=== PATIENT | female | born 1930 | race Caucasian/White ===

== ENCOUNTER 2017-01-11 20:25 | Emergency (ER) | payer MEDICARE ==
[2017-01-11 20:39] VITALS: BP 169/86
--- NOTE | 2017-01-11 21:08 | UC ---
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---all happenen in past 2 days Bite on left arm is red warm and swollen - History of Current Complaint Chief Complaint: UCBiteInjury Time Seen by Provider: 01/11/17 20:55 Stated Complaint: TICK BITES Hx Obtained From: Patient ?: No Onset/Duration: Sudden Onset, Lasting Days - 2, Worse Since - left arm today Skin Exposure Onset/Duration: Days Ago - 2 Timing: Constant Onset Severity: Mild Current Severity: Moderate Pain Intensity: 2 - left elbow at tick site Location: Discrete Character: Redness Aggravating: Nothing Alleviating: Nothing Associated Signs & Symptoms: Positive: Bruising - arond 4 of the site, Tenderness - around site on left arm Related History: Possible Reaction to: Insect Similar Episode/Dx as: Lyme times 2 in the past - Allergy/Home Medications Allergies/Adverse Reactions: Allergies Allergy/AdvReac Type Severity Reaction Status Date / Time Amlodipine Allergy Unknown Verified 01/11/17 20:39 Reaction Details Amoxicillin Allergy Unknown Verified 01/11/17 20:39 Reaction Details Ciprofloxacin Allergy Rash Verified 01/11/17 20:39 Hydrochlorothiazide Allergy Shakes Verified 01/11/17 20:39 Levofloxacin [From Levaquin] Allergy Muscle Ache Verified 01/11/17 20:39 Levothyroxine Allergy Diarrhea Verified 01/11/17 20:39 Omeprazole Allergy Abdominal Verified 01/11/17 20:39 Pain Review of Systems Constitutional: Negative Skin: Bruising - around 4 tick bite, Other - erythema around bite on left arm Eyes: Negative ENT: Negative Respiratory: Negative Cardiovascular: Negative Gastrointestinal: Negative Genitourinary: Negative Motor: Negative Neurovascular: Negative Musculoskeletal: Negative Neurological: Negative Psychological: Negative All Other Systems Reviewed And Are Negative: Yes PMH/Surg Hx/FS Hx/Imm Hx Previously Healthy: No - Lyme x2 Cardiovascular History Of: Reports: Hypertension GI/ History Of: Denies: Gall Bladder Disease - Surgical History Surgical History: Yes Surgery Procedure, Year, and Place: appendectomy as a teenager. Cataract surgery. - Family History Known Family History: Positive: None Family History: No cardio vascular issues reported in family lineage - Social History Occupation: Retired Lives: With Family Alcohol Use: None Substance Use Type: None Smoking Status (MU): Never Smoked Tobacco - Immunization History Most Recent Influenza Vaccination: never Most Recent Tetanus Shot: up to date Most Recent Pneumonia Vaccination: years ago Physical Exam Triage Information Reviewed: Yes Appearance: Well-Appearing, No Pain Distress, Well-Nourished Vital Signs: Initial Vital Signs Temp 96.7 F 01/11/17 20:35 Pulse 79 01/11/17 20:35 Resp 16 01/11/17 20:35 BP 169/86 01/11/17 20:35 Pulse Ox 100 01/11/17 20:35 Vital Signs Reviewed: Yes Eye Exam: Normal Eyes: Positive: Conjunctiva Clear ENT Exam: Normal ENT: Positive: Normal ENT inspection, Hearing grossly normal. Negative: Nasal congestion, Nasal drainage, Trismus, Muffled/hoarse voice Dental Exam: Normal Neck exam: Normal Neck: Positive: Supple, Nontender, No Lymphadenopathy Respiratory Exam: Normal Respiratory: Positive: Chest non-tender, Lungs clear, Normal breath sounds, No respiratory distress, No accessory muscle use Cardiovascular Exam: Normal Cardiovascular: Positive: RRR, No Murmur, Pulses Normal, Brisk Capillary Refill Musculoskeletal Exam: Normal Musculoskeletal: Positive: Strength Intact, ROM Intact, No Edema Neurological Exam: Normal Neurological: Positive: Alert, Muscle Tone Normal Psychological Exam: Normal Psychological: Positive: Normal Response To Family Skin: Positive: rashes - bruising around 4 tick sites, Other - erythema 2 inch diameter and tender around site Left forearm Course/Dx - Course Course Of Treatment: PEP for Lyme and treat cellulitis, follow BP, cellulities and s/s of Lyme with pcp---warm compress to left fore arm - Differential Diagnoses - Skin Complaint Differential Diagnoses: Cellulitis, Impetigo, Tick Born Illness - Diagnoses Provider Diagnoses: Lyme PEP, cellulitis left for arm, hypertension poor control Discharge - Discharge Plan Condition: Stable Disposition: HOME Prescriptions: DOXYcycline CAP(*) [DOXYcycline 100MG CAP(*)] 100 mg PO BID #20 cap Patient Education Materials: Cellulitis (ED), Tick Bite (ED), DASH Eating Plan (ED), Hypertension (ED) Referrals: Russell Gu MD [Primary Care Provider] - 2 Weeks
[2017-01-11] MEDS ORDERED: DOXYcycline CAP(*) 100 MG PO ONE (21:13)
== END 2017-01-11 21:29 | disposition home or self-care (01) ==
LOC: UCEAST 20:25
DX: S50.862A Insect bite (nonvenomous) of left forearm, initial encounter (principal); L03.114 Cellulitis of left upper limb; W57.XXXA Bitten or stung by nonvenomous insect and other nonvenomous arthropods, initial encounter; Y93.9 Activity, unspecified; Y92.9 Unspecified place or not applicable; I10 Essential (primary) hypertension; Z98.49 Cataract extraction status, unspecified eye; Z88.1 Allergy status to other antibiotic agents; Z88.8 Allergy status to other drugs, medicaments and biological substances
CPT/HCPCS: 99212; A9270-GY; G0463

== ENCOUNTER 2017-06-13 11:54 | Emergency (ER) | payer MEDICARE ==
[2017-06-13 12:12] VITALS: BP 181/72
[2017-06-13] MEDS ORDERED: DOXYcycline CAP(*) 100 MG PO ONE (12:44)
--- NOTE | 2017-06-13 12:49 | UC ---
Skin Complaint HPI - HPI Summary HPI Summary: Noticed tick in R upper arm this morning, it looked "very big." Was outside 2-3 days ago; dtr tried to help remove it, but tick twisters don't work due to pt's elastic skin. Would like the rest of the tick removed, prophylactic therapy. - History of Current Complaint Chief Complaint: UCSkin Time Seen by Provider: 06/13/17 12:27 Stated Complaint: TICK Hx Obtained From: Patient, Family/Beader Tender ?: No Onset/Duration: Lasting Days Timing: Constant Location: Discrete Character: Redness Aggravating Factor(s): Nothing Alleviating Factor(s): Nothing Associated Signs & Symptoms: Positive: Negative Related History: Insect Bite/Sting - Allergy/Home Medications Allergies/Adverse Reactions: Allergies Allergy/AdvReac Type Severity Reaction Status Date / Time Amlodipine Allergy Unknown Verified 06/13/17 12:14 Reaction Details Ciprofloxacin [From Cipro] Allergy Rash Verified 06/13/17 12:14 Hydrochlorothiazide Allergy Shakes Verified 06/13/17 12:14 Levofloxacin [From Levaquin] Allergy Muscle Ache Verified 06/13/17 12:14 Levothyroxine Allergy Diarrhea Verified 06/13/17 12:14 Omeprazole Allergy GI Upset Verified 06/13/17 12:14 Home Medications: Home Medications Losartan TAB* [Cozaar TAB*] 100 mg PO DAILY 06/13/17 [History Confirmed 06/13/17 ] Tetrahydrozoline HCl (Ophth) [Eye Drops] 06/13/17 [History] Review of Systems Constitutional: Negative Skin: Other - tick Eyes: Negative ENT: Negative Respiratory: Negative Cardiovascular: Negative Gastrointestinal: Negative Genitourinary: Negative Motor: Negative Neurovascular: Negative Musculoskeletal: Negative Neurological: Negative Psychological: Negative Is Patient Immunocompromised?: No All Other Systems Reviewed And Are Negative: Yes PMH/Surg Hx/FS Hx/Imm Hx Cardiovascular History: Hypertension - Surgical History Surgical History: Yes Surgery Procedure, Year, and Place: appy - Social History Alcohol Use: None Substance Use Type: None Smoking Status (MU): Never Smoked Tobacco Physical Exam Triage Information Reviewed: Yes Appearance: Well-Appearing, No Pain Distress, Well-Nourished Vital Signs: Initial Vital Signs Temp 98.1 F 06/13/17 12:08 Pulse 72 06/13/17 12:08 Resp 18 06/13/17 12:08 BP 181/72 06/13/17 12:08 Pulse Ox 98 06/13/17 12:08 Vital Signs Reviewed: Yes Eyes: Positive: Conjunctiva Clear ENT: Positive: Pharynx normal. Negative: Hearing grossly normal - [place], reads lips Dental Exam: Other - dentures Neck exam: Normal Respiratory Exam: Normal Respiratory: Positive: Chest non-tender, Lungs clear, Normal breath sounds, No respiratory distress, No accessory muscle use Cardiovascular Exam: Normal Cardiovascular: Positive: RRR, No Murmur Musculoskeletal Exam: Normal Neurological Exam: Normal Neurological: Positive: Alert Psychological Exam: Normal Skin Exam: Other - tick bite site benign with 1.5cm reactive erythematous round area, mouth parts noted in the center, removed with splinter forceps. Course/Dx - Diagnoses Provider Diagnoses: R arm tick bite. soft tissue FB removal Discharge - Discharge Plan Condition: Stable Disposition: HOME Patient Education Materials: Tick Bite (ED) Additional Instructions: TICK BITE: You have been bitten by a tick. Once the tick is removed, these "bites" usually cause no problems. Tick fever, tick paralysis, [place] Spotted fever, and Lyme disease are uncommon -- but you should mention this tick bite to your doctor if you develop unusual symptoms in the next several weeks. If you develop any of the following, please see your physician promptly: (1) Fever, chills, or generalized malaise associated with a headache. (2) A red round area at the site of the bite (or elsewhere) (3) Joint pain, joint swelling or generalized weakness. (4) Redness, swelling, or drainage at the site of the bite. Check yourself, your children and your pets for ticks whenever you've been in an area where ticks live. To remove a tick, grasp it firmly with some tweezers or a string in a slipknot as close to its head as possible and pull it steadily. Ticks do not have a typical "head" attached to their body. There are mouth parts sticking out which they use to feed. If there are mouth parts left behind in the wound there is NO increased risk of Lyme infection; however, the chances of a bacterial skin infection (cellulitis) are higher. If mouth parts remain after tick removal, the best thing to do is apply warm soaks to the area 3-4 times per day to encourage the skin to expel the foreign material. DOXYCYCLINE: Doxycycline (Vibramycin, Doryx) is an antibiotic of the tetracycline family. This type of drug is useful for infections of the respiratory tract and genital tract, and is sometimes used for intestinal infections. Unlike most tetracyclines, doxycycline can be taken with food. It is longer acting, and (usually) less prone to side effects than regular tetracycline. Tetracycline antibiotics can stain immature teeth and SHOULD NOT BE TAKEN BY CHILDREN, NURSING MOTHERS, OR WOMEN. Tetracyclines can make you more prone to sunburn. Abdominal cramping, nausea, and diarrhea are occasional side effects. Women may experience vaginal yeast infections. Call the doctor at once if you develop hives, itching, shortness of breath , or lightheadedness. WHEN A TICK IS NOT ENGORGED AND HAS BEEN ON LESS THAN 24 HOURS - THE RISK FOR LYME IS NEGLIGIBLE. YOU CAN REMOVE THE TICK AND OBSERVE THE AREA ON YOUR OWN. FOLLOW-UP CARE: You should contact your private physician for follow-up care if you develop spreading redness near the site of the bite or on any other areas of the body. If you are unable to get a timely appointment, or if you are worsening, call us or return for re-evaluation.
== END 2017-06-13 13:00 | disposition home or self-care (01) ==
LOC: EDUNIT# → UCEAST 11:54
DX: S40.861A Insect bite (nonvenomous) of right upper arm, initial encounter (principal); I10 Essential (primary) hypertension; W57.XXXA Bitten or stung by nonvenomous insect and other nonvenomous arthropods, initial encounter; Y92.9 Unspecified place or not applicable
CPT/HCPCS: 99202; A9270-GY; G0463

== ENCOUNTER 2017-07-29 10:42 | Emergency (ER) | payer MEDICARE ==
[2017-07-29 11:05] VITALS: BP 154/50
--- NOTE | 2017-07-29 12:28 | UC ---
Ear Complaint HPI - HPI Summary HPI Summary: 86 year old female here for hearing loss. As per daughter, patient is on treatment of bilateral otitis media and sinusitis. She had history of decreased hearing but in the past few days, complete hearing loss. Her daughter couldnt get an appointment with ENT for another 3-4 months, so she brought here for evaluation. - History of Current Complaint Chief Complaint: UCGeneralIllness Stated Complaint: SINUS ISSUE EAR PAIN Time Seen by Provider: 07/29/17 11:33 Onset/Duration: Gradual Onset Severity Initially: Mild Associated Signs/Symptoms: Positive: Hearing Loss - Allergies/Home Medications Allergies/Adverse Reactions: Allergies Allergy/AdvReac Type Severity Reaction Status Date / Time Amlodipine Allergy Unknown Verified 07/29/17 11:06 Reaction Details Amoxicillin Allergy Unknown Verified 07/29/17 11:06 Reaction Details Ciprofloxacin Allergy Rash Verified 07/29/17 11:06 Hydrochlorothiazide Allergy Shakes Verified 07/29/17 11:06 Levofloxacin [From Levaquin] Allergy Muscle Ache Verified 07/29/17 11:06 Levothyroxine Allergy Diarrhea Verified 07/29/17 11:06 Omeprazole Allergy Abdominal Verified 07/29/17 11:06 Pain Penicillins Allergy Unknown Verified 07/29/17 11:06 Reaction Details Home Medications: Home Medications Carboxymethylcellulose-Hyprome [Genteal 0.25-0.3 %] 1 applic OPHTHALMIC QID 09/14 [History Confirmed 07/29/17] Cefdinir [Cefdinir 300 MG CAP] 300 mg PO BID 07/29/17 [History Confirmed ] Ketorolac 0.5% OPHTH (NF) 1 drop OPHTHALMIC TID 07/29/17 [History Confirmed 09/14] Prednisolone Acetate (Ophth) [Pred Forte] 1 drop OPHTHALMIC QID 07/29/17 [ History Confirmed 07/29/17] Sodium Chloride 5% OPTH OINT* [[place] 128- 5% Opth Oint*] 1 applic OPHTHALMIC BEDTIME 07/29/17 [History Confirmed 07/29/17] PMH/Surg Hx/FS Hx/Imm Hx - Surgical History Surgical History: Yes Surgery Procedure, Year, and Place: appy; Cataracts and Glaucoma; Hiatal Hernia Repair - Family History Known Family History: Positive: None Family History: No cardio vascular issues reported in family lineage - Social History Alcohol Use: None Substance Use Type: None Smoking Status (MU): Never Smoked Tobacco - Immunization History Most Recent Influenza Vaccination: Not Utd Most Recent Tetanus Shot: up to date Most Recent Pneumonia Vaccination: years ago Review of Systems Constitutional: Negative Skin: Negative Eyes: Negative ENT: Sinus Congestion, Sinus Pain/Tenderness, Other Respiratory: Negative Cardiovascular: Negative Gastrointestinal: Negative Genitourinary: Negative Motor: Negative Neurovascular: Negative Musculoskeletal: Negative Neurological: Negative Psychological: Negative All Other Systems Reviewed And Are Negative: Yes Physical Exam Triage Information Reviewed: Yes Appearance: Well-Appearing, No Pain Distress, Well-Nourished Vital Signs: Initial Vital Signs Temp 36.6 C 07/29/17 10:56 Pulse 68 07/29/17 10:56 Resp 16 07/29/17 10:56 BP 154/50 07/29/17 10:56 Pulse Ox 100 07/29/17 10:56 ENT: Positive: Other - Right TM wnl Left TM with slight effusion Complete loss of hearing, Respiratory: Positive: Chest non-tender, Lungs clear, Normal breath sounds, No respiratory distress, No accessory muscle use Cardiovascular: Positive: RRR, No Murmur, Pulses Normal Skin Exam: Normal Ear Complaint Course/Dx - Course Course Of Treatment: Hearing loss - Differential Dx/Diagnosis Differential Diagnosis/HQI/PQRI: Otitis Externa, Otitis Media Provider Diagnoses: Hearing loss Discharge - Discharge Plan Condition: Good Disposition: HOME Patient Education Materials: Hearing Loss (ED) Referrals: Russell Gu MD [Primary Care Provider] - Devon Page MD [Medical Doctor] - Additional Instructions: Follow up with Dr. Page .
--- NOTE | 2017-07-29 12:35 | UC ---
Progress - Progress Note Progress Note: I called Dr. Page's office but it was closed for lunch. I explained to the daughter that since the otitis media is resolving, no new medication is needed. However the daughter was visibly upset, yelling at me and RN. "I cant get ENT appointment, and what makes you think you can get an ENT appt." I have explained that no emergent procedure is needed here and no new antibiotics is needed.
== END 2017-07-29 12:35 | disposition home or self-care (01) ==
LOC: UCEAST 10:42
DX: H91.90 Unspecified hearing loss, unspecified ear (principal); H66.93 Otitis media, unspecified, bilateral
CPT/HCPCS: 99211; 99212; G0463

== ENCOUNTER 2017-10-23 09:29 | Emergency (ER) | payer MEDICARE ==
[2017-10-23 11:37] VITALS: BP 154/90
--- NOTE | 2017-10-23 13:22 | UC ---
Carlos Lynch Jason, scribed for Fabiano Monahan MD on 10/23/17 at 1134 . Respiratory Complaint HPI - HPI Summary HPI Summary: This patient is a 86 year old F presenting to [facility] with a chief complaint of respiratory infection since 4 days ago. The patient states that she has been coughing up diehl mucous, experienced a mild fever for one day, and began feeling so tired I could sleep all day. The patient rates the pain 0/10 in severity. Symptoms aggravated by nothing. Symptoms alleviated by nothing. Patient reports mild fever, productive cough, chills, diehl mucous. Patient denies hx of CHF, body aches. - History of Current Complaint Chief Complaint: UCRespiratory Stated Complaint: URI Time Seen by Provider: 10/23/17 11:23 Hx Obtained From: Patient Onset/Duration: Gradual Onset, Lasting Days - 4 days Pain Intensity: 0 Pain Scale Used: 0-10 Numeric Character: Cough: Productive Alleviating Factors: Nothing Associated Signs And Symptoms: Positive: Fever, Chills - Allergies/Home Medications Allergies/Adverse Reactions: Allergies Allergy/AdvReac Type Severity Reaction Status Date / Time amlodipine Allergy Unknown Verified 10/23/17 09:51 Reaction Details ciprofloxacin [From Cipro] Allergy Rash Verified 10/23/17 09:51 hydrochlorothiazide Allergy Shakes Verified 10/23/17 09:51 levofloxacin [From Levaquin] Allergy Muscle Ache Verified 10/23/17 09:51 levothyroxine Allergy Diarrhea Verified 10/23/17 09:51 MS Levothyroxine Allergy Diarrhea Verified 07/29/17 11:06 [Levothyroxine] MS Omeprazole [Omeprazole] Allergy Abdominal Verified 07/29/17 11:06 Pain MS Penicillins [Penicillins] Allergy Unknown Verified 07/29/17 11:06 Reaction Details omeprazole Allergy Unknown Verified 10/23/17 09:51 Reaction Details PMH/Surg Hx/FS Hx/Imm Hx Cardiovascular History: Other Other Cardiovascular History: negative CHF - Surgical History Surgical History: Yes Surgery Procedure, Year, and Place: appy; Cataracts and Glaucoma; Hiatal Hernia Repair - Family History Known Family History: Positive: None Family History: No cardio vascular issues reported in family lineage - Social History Alcohol Use: None Substance Use Type: None Smoking Status (MU): Never Smoked Tobacco - Immunization History Most Recent Influenza Vaccination: Not Utd Most Recent Tetanus Shot: up to date Most Recent Pneumonia Vaccination: years ago Review of Systems Constitutional: Fever - mild fever for one day, Chills Respiratory: Cough - productive with diehl mucous Musculoskeletal: Negative - myalgia All Other Systems Reviewed And Are Negative: Yes Physical Exam - Summary Physical Exam Summary: General: well-appearing, no pain distress Skin: warm, color reflects adequate perfusion, dry Head: normal Eyes: EOMI, LIZZY ENT: Positive Rhinorrhea, eardrums okay, Posterior pharynx with mild erythema Neck: supple, nontender, Positive anterior cervical lymphadenopathy. Respiratory: CTA, breath sounds present Cardiovascular: RRR Abdomen: soft, nontender Bowel: present Musculoskeletal: normal, strength/ROM intact Neurological: normal, sensory/motor intact, A&O x3 Psychological: affect/mood appropriate Triage Information Reviewed: Yes Vital Signs: Initial Vital Signs Temp 98.9 F 10/23/17 09:44 Pulse 82 10/23/17 09:44 Resp 18 10/23/17 09:44 BP 127/102 10/23/17 09:44 Pulse Ox 99 10/23/17 09:44 Diagnostic Evaluation - Laboratory O2 Sat by Pulse Oximetry: 99 Respiratory Course/Dx - Course Course Of Treatment: Medications reviewed. Allergies noted. BP noted and advised to follow up with PCP. DISCUSSED VIRAL VERSES BACTERILA INFECTIONS AND THE USE OF ANTIBIOTICS. THE PATIENT WISHES TO START AND ANTIBIOTIC AT THIS TIME. - Differential Dx/Diagnosis Provider Diagnoses: BRONCHITIS. elevated BP without dx of HTN Discharge - Discharge Plan Condition: Stable Disposition: HOME Prescriptions: Azithromyxin PATRICK (NF) [Z-Patrick (Zithromax) 250 mg tabs #6] 2 tab PO .TODAY, THEN 1 DAILY #6 tab Patient Education Materials: Acute Bronchitis (ED) Referrals: Russell Gu MD [Primary Care Provider] - Additional Instructions: Your blood pressure was elevated during todays visit; please follow up with your primary care provider within a week for further evaluation The documentation as recorded by the Carlos huang Jason accurately reflects the service I personally performed and the decisions made by me, Fabiano Monahan MD.
== END 2017-10-23 11:47 | disposition home or self-care (01) ==
LOC: UCEAST 09:29
DX: J40 Bronchitis, not specified as acute or chronic (principal); R03.0 Elevated blood-pressure reading, without diagnosis of hypertension; Z88.1 Allergy status to other antibiotic agents; Z88.0 Allergy status to penicillin; Z88.8 Allergy status to other drugs, medicaments and biological substances
CPT/HCPCS: 99212; G0463

== ENCOUNTER 2019-08-24 18:17 | Emergency (ER) | payer MEDICARE ==
--- NOTE | 2019-08-24 18:35 | ED ---
Lower Extremity - HPI Summary HPI Summary: The patient is an 88 y/o F presenting [place] [facility] accompanied by daughter with a chief complaint of swelling and pain in the right calf onset four days ago. She reports that she had slipped on ice and caught herself on her right calf. She denies feeling a popping sensation in the leg. Since then, the pain has been increasing. She went to her chiropractor today who noticed that there was a lot of sensitivity in the calf as well as swelling. Her PCP recommended she come here to rule out DVT. She denies any CP, SOB, cough, abdominal pain, or nausea. There is no pain in the anterior lower leg. Symptoms currently rated 6/10 in severity. Pain is aggravated by touch. PMHx: HTN, glaucoma. Nonsmoker, no EtOH, no substance use. Medications reviewed. Allergies noted. - History of Current Complaint Chief Complaint: EDExtremityLower Stated Complaint: RT CALF PAIN PER PT Time Seen by Provider: 08/24/19 18:25 Hx Obtained From: Patient Mechanism Of Injury: Other - hit calf a few days ago while catching self from falling Onset of Pain: Post Accident Onset/Duration: Still Present Severity Initially: Mild Severity Currently: Moderate Pain Intensity: 6 Pain Scale Used: 0-10 Numeric Timing: Constant Location: Is Discrete @ - right calf Associated Signs And Symptoms: Positive: Swelling. Negative: Other - CP, SOB, cough, abdominal pain, nausea, pain in anterior lower right leg Aggravating Factor(s): Other - touch Alleviating Factor(s): Rest - Allergies/Home Medications Allergies/Adverse Reactions: Allergies Allergy/AdvReac Type Severity Reaction Status Date / Time amlodipine Allergy Unknown Verified 08/24/19 18:21 Reaction Details ciprofloxacin [From Cipro] Allergy Rash Verified 08/24/19 18:21 hydrochlorothiazide Allergy Shakes Verified 08/24/19 18:21 levofloxacin [From Levaquin] Allergy Muscle Ache Verified 08/24/19 18:21 levothyroxine Allergy Diarrhea Verified 08/24/19 18:21 MS Levothyroxine Allergy Diarrhea Verified 08/24/19 18:21 [Levothyroxine] MS Omeprazole [Omeprazole] Allergy Abdominal Verified 08/24/19 18:21 Pain MS Penicillins [Penicillins] Allergy Unknown Verified 08/24/19 18:21 Reaction Details omeprazole Allergy Unknown Verified 08/24/19 18:21 Reaction Details PMH/Surg Hx/FS Hx/Imm Hx Endocrine/Hematology History: Denies: Hx Diabetes Cardiovascular History: Reports: Hx Hypertension GI History: Reports: Hx Gastroesophageal Reflux Disease, Hx Irritable Bowel Denies: Hx Cirrhosis, Hx Crohn's Disease, Hx Diverticulosis, Hx Gall Bladder Disease Musculoskeletal History: Reports: Hx Arthritis Sensory History: Reports: Hx Contacts or Glasses, Hx Hearing Problem - [facility] Opthamlomology History: Reports: Hx Contacts or Glasses - Surgical History Surgical History: Yes Surgery Procedure, Year, and Place: appy; Cataracts and Glaucoma; Hiatal Hernia Repair Hx Anesthesia Reactions: No Infectious Disease History: No Infectious Disease History: Denies: Hx Clostridium Difficile, Hx Hepatitis, Hx Human Immunodeficiency Virus (HIV), Hx Shingles, Hx Tuberculosis, Traveled Outside the [place] in Last 30 Days - Family History Known Family History: Negative: Cardiac Disease, Hypertension Family History: No cardio vascular issues reported in family lineage - Social History Alcohol Use: None Hx Substance Use: No Substance Use Type: Reports: None Hx Tobacco Use: No Smoking Status (MU): Never Smoked Tobacco Review of Systems Negative: Chest Pain Negative: Shortness Of Breath, Cough Negative: Abdominal Pain, Nausea Positive: Other - pain in left calf with swelling; Negative: pain in anterior lower right leg All Other Systems Reviewed And Are Negative: Yes Physical Exam - Summary Physical Exam Summary: Constitutional: Well-developed, Well-nourished, Alert. (-) Distressed Skin: Warm, Dry HENT: Normocephalic; Atraumatic Eyes: Conjunctiva normal Neck: Musculoskeletal ROM normal neck. (-) JVD, (-) Stridor, (-) Tracheal deviation Cardio: Rhythm regular, rate normal, Heart sounds normal; Intact distal pulses; The pedal pulses are 2+ and symmetric. Radial pulses are 2+ and symmetric. (-) Murmur Pulmonary/Chest wall: Effort normal. (-) Respiratory distress, (-) Wheezes, (-) Rales Abd: Soft, (-) tenderness, (-) Distension, (-) Guarding, (-) Rebound Musculoskeletal: Tenderness in the right calf, Right calf larger than left, (-) Edema Lymph: (-) Cervical adenopathy Neuro: Alert, Oriented x3 Psych: Mood and affect Normal Triage Information Reviewed: Yes Vital Signs On Initial Exam: Initial Vitals Temp Pulse Resp BP Pulse Ox 97.9 F 92 16 178/87 97 08/24/19 18:19 08/24/19 18:19 08/24/19 18:19 08/24/19 18:19 08/24/19 18:19 Vital Signs Reviewed: Yes Procedures - Sedation Patient Received Moderate/Deep Sedation with Procedure: No Diagnostics - Vital Signs Vital Signs Temp Pulse Resp BP Pulse Ox 08/24/19 18:19 97.9 F 92 16 178/87 97 - Laboratory Result Diagrams: 08/24/19 20:23 08/24/19 20:23 Lab Statement: Any lab studies that have been ordered have been reviewed, and results considered in the medical decision making process. - Ultrasound Venous Doppler RLE US Ultrasound Interpretation Completed By: Radiologist Summary of Ultrasound Findings: Impression: No DVT of the right lower extremity. ED physician has reviewed this report. Lower Extremity Course/Dx - Course Course Of Treatment: Patient is an 88 year-old female presenting with chief complaint of pain and swelling in the right calf onset four days ago after catching herself from falling on ice. She denies pain in the anterior lower left leg, CP, SOB, cough, abdominal pain, or nausea. Physical exam reveals tenderness in right calf, right calf larger than left but no pitting edema. Blood work reveals of WBCs of 36.6, MCH of 32, absolute lymphocytes of 33.1, absolute monocytes of 0.9, BUN/creatinine of 22.8, and glucose of 109. Venous Doppler of right lower extremity ultrasound is negative for DVT. Patient is able to be discharged home safely. Patient understands and agrees with plan. Diagnosis of muscle spasm. - Diagnoses Provider Diagnoses: Muscle spasm Discharge ED - Sign-Out/Discharge Documenting (check all that apply): Patient Departure - Patient will be discharged home. - Discharge Plan Condition: Stable Disposition: HOME Patient Education Materials: Muscle Spasm (ED) Print Language: MALIAN Referrals: Vinod Cardenas MD [Primary Care Provider] - 3 Days Additional Instructions: Follow up with your primary care provider in 2-3 days. Return to the emergency department for any new or worsening symptoms. - Billing Disposition and Condition Condition: STABLE Disposition: Home - Attestation Statements Document Initiated by Scribe: Yes Documenting Scribe: Sammie Holm Provider For Whom Scribe is Documenting (Include Credential): Dr. Mayelin Harmon MD Scribe Attestation: I, Sammie Holm, scribed for Dr. Mayelin Harmon MD on 08/24/19 at 2320. Scribe Documentation Reviewed: Yes Provider Attestation: The documentation as recorded by the scribe, Sammie Holm accurately reflects the service I personally performed and the decisions made by me, Dr. Mayelin Harmon MD Status of Scribe Document: Viewed
[2019-08-24 20:35] LABS: Hematocrit 38 % (35-47); Hemoglobin 12.8 g/dL (12.0-16.0); Mean Corpuscular HGB Conc 34 g/dL (31-36); Mean Corpuscular Hemoglobin 32 pg (27-31); Mean Corpuscular Volume 94 fL (80-97); Platelet Count 228 10^3/uL (150-450); Red Blood Count 4.04 10^6 /uL (3.70-4.87); Red Cell Distribution Width 15 % (10-15); White Blood Count 36.6 10^3/uL (3.5-10.8)
[2019-08-24 20:51] LABS: Albumin/Globulin Ratio 1.7 (1-3); BUN/Creatinine Ratio 22.8 (8-20); Calcium 9.3 mg/dL (8.6-10.3); EGFR African American 69.9 (>60); EGFR Non-African American 57.7 (>60); Globulin 2.4 g/dL (2-4); Potassium 4.5 mmol/L (3.5-5.0); Total Bilirubin 0.4 mg/dL (0.2-1.0); Total Protein 6.4 g/dL (6.4-8.9)
[2019-08-24 21:02] LABS: ABS Basophils 0.1 10^3/ul (0-0.2); ABS Eosinophils 0.3 10^3/ul (0-0.6); ABS Lymphocytes 33.1 10^3/ul (1.0-4.8); ABS Neutrophils 2.3 10^3/ul (1.5-7.7); ABS Nucleated RBC 0.1 10^3/ul; Eosinophil % 0.7 %; Lymphocyte % 90.5 %; Nucleated Red Blood Cells % 0.3
[2019-08-25 01:01] VITALS: BP 128/74
== END 2019-08-25 00:59 | disposition home or self-care (01) ==
LOC: ED 18:17
DX: M62.838 Other muscle spasm (principal); I10 Essential (primary) hypertension; K21.9 Gastro-esophageal reflux disease without esophagitis; Z88.0 Allergy status to penicillin; Z88.1 Allergy status to other antibiotic agents; Z88.8 Allergy status to other drugs, medicaments and biological substances
CPT/HCPCS: 36415; 80053; 82550; 85025; 85060; 99282